=== PATIENT | female | born 1980 | race Caucasian/White ===

== ENCOUNTER → 2021-12-16 | Outpatient (CLI) | payer OTHER ==
--- NOTE | 2021-12-16 09:51 | MM ---
Reason for exam: clinical finding. Baseline mammogram. History: Patient had first child at age 34. Benign excisional biopsy of the left breast, 2007. Physical Findings: Nurse did not find any significant physical abnormalities on exam. [facility] Mammo w CAD CARISA Bilateral CC and MLO view(s) were taken. The breast tissue is extremely dense which could obscure a lesion on mammography. No suspicious calcifications are seen. There is no discrete abnormality. No significant new findings when compared with previous films. These results were verbally communicated with the patient and result sheet given to the patient on 12/16/21. ASSESSMENT: Incomplete: need additional imaging evaluation, BI-RAD 0 RECOMMENDATION: Ultrasound of the left breast.
== END | disposition home or self-care (01) ==
LOC: RADMAMWWP 08:35
PROVIDERS: ATTEND Family Medicine
DX: R92.8 Other abnormal and inconclusive findings on diagnostic imaging of breast (principal); N64.4 Mastodynia
CPT/HCPCS: 77066

== ENCOUNTER → 2021-12-24 | Outpatient (CLI) | payer OTHER ==
--- NOTE | 2021-12-25 10:18 | US ---
EXAMINATION TYPE: US pelvic complete DATE OF EXAM: 12/24/2021 COMPARISON: NONE CLINICAL HISTORY: N94.6 DYSMENORRHEA. DUB TECHNIQUE: TA. Transabdominal sonographic images of the pelvis were acquired. Date of LMP: 12/21/2021 EXAM MEASUREMENTS: Uterus: 10.2 x 4.3 x 4.0 cm Endometrial Stripe: 1.4 cm Right Ovary: 1.9 x 2.0 x 1.8 cm Left Ovary: 3.4 x 2.9 x 3.3 cm 1. Uterus: Anteverted wnl 2. Endometrium: thickened post cycle 3. Right Ovary: wnl 4. Left Ovary: 2.6cm cyst seen. Posterior wall enhancement is not as intense and wall definition is not thick. This is not a simple cyst. Follow-up is recommended. 5. Bilateral Adnexa: wnl 6. Posterior cul-de-sac: wnl IMPRESSION: 1. Endometrial stripe appears thickened for the menstrual stage. 2. 2.6 cm left ovarian cyst. Follow-up left ovarian cyst.
== END | disposition home or self-care (01) ==
LOC: RADUSWWP 16:27
PROVIDERS: ATTEND Family Medicine
DX: N83.202 Unspecified ovarian cyst, left side (principal); N94.6 Dysmenorrhea, unspecified
CPT/HCPCS: 76856